=== PATIENT | male | born 1990 | race Caucasian/White ===

== ENCOUNTER 2018-02-23 08:50 | Emergency (ER) | payer OTHER ==
[2018-02-23 09:19] VITALS: BP 142/64
--- NOTE | 2018-02-23 10:12 | ED Physician Documentation ---
PD HPI SKIN - Stated complaint Stated Complaint: MALE - Chief complaint Chief Complaint: Wound - History obtained from History obtained from: Patient - History of Present Illness Timing - onset: How many days ago (3) Timing - duration: Days (3) Timing - details: Gradual onset, Still present Location: Genitals Quality / character: Itchy, Raised, Vesicular Associated symptoms: Other (recently shaved genitals) Similar symptoms before: Has not had sx before Recently seen: Not recently seen - Additional information Additional information: 27-year-old male has recently shaved his private areas and he has developed an area where the hair follicles appear infected and he has plucked some hair follicles out with drainage of pus. The area continues to have inflammation and he is here for evaluation. He states that he did have protected intercourse 1 month ago and he has not otherwise had exposure. He denies any urinary symptoms. Denies any generalized aches or pains does have pain directly to the area. Review of Systems Constitutional: denies: Fever, Chills, Myalgias, Fatigue, Sweats Respiratory: denies: Cough GI: denies: Nausea, Vomiting : denies: Dysuria, Frequency, Discharge Skin: reports: Lesions Musculoskeletal: denies: Neck pain, Back pain, Extremity pain PD PAST MEDICAL HISTORY - Present Medications Home Medications: Ambulatory Orders Medication Instructions Recorded Confirmed Sulfamethoxazole/Trimethoprim 1 each PO BID #14 tablet 02/23/18 [Sulfamethoxazole-Tmp Ds Tablet] - Allergies Allergies/Adverse Reactions: Allergies Allergy/AdvReac Type Severity Reaction Status Date / Time No Known Drug Allergies Allergy Verified 02/23/18 09:18 PD ED PE NORMAL - Vitals Vital signs reviewed: Yes (min;) - General General: Alert and oriented X 3, No acute distress, Well developed/nourished - HEENT HEENT: Atraumatic, PERRL, EOMI - Respiratory Respiratory: No respiratory distress - Derm Derm: Normal color, Warm and dry, Other (there is a circular area on the right groin lateral and superior to the penis with inflamation in each hair follicle and no fluctuance or mass. The area is consistent with vesicular formation of HSV except that the inflamation is only in the hair follicles. ) - Extremities Extremities: No deformity, No edema - Neuro Neuro: No motor deficit, No sensory deficit Eye Opening: Spontaneous Motor: Obeys Commands Verbal: Oriented GCS Score: 15 - Psych Psych: Normal mood, Normal affect Results - Vitals Vitals: Vital Signs - 24 hr 02/23/18 09:16 Temperature 36.8 C Heart Rate 79 Respiratory 18 Rate Blood Pressure 142/64 H O2 Saturation 99 Oxygen O2 Source Room air PD MEDICAL DECISION MAKING - ED course Complexity details: considered differential, d/w patient ED course: 27-year-old male with an area of vesiculation that appears consistent with HSV except that all the inflammation is only in the hair shafts. He gives a history of 1 month ago having intercourse and this could be a exceptionally long incubation period. A swab of a vesicle is obtained for HSV on a viral transport swab and the patient is treated for folliculitis. - Sepsis Event Vital Signs: Vital Signs - 24 hr 02/23/18 09:16 Temperature 36.8 C Heart Rate 79 Respiratory 18 Rate Blood Pressure 142/64 H O2 Saturation 99 Oxygen O2 Source Room air Departure - Departure Disposition: 01 Home, Self Care Clinical Impression: Folliculitis Condition: Stable Instructions: ED Stap Infec Abx Tx Only Follow-Up: [facility] [Provider Group] Prescriptions: Sulfamethoxazole/Trimethoprim [Sulfamethoxazole-Tmp Ds Tablet] 1 each PO BID # 14 tablet
[2018-02-25 18:47] LABS: HSV 2 DNA DETECTED; SOURCE GENITAL VESICLES
== END 2018-02-23 10:32 | disposition home or self-care (01) ==
LOC: ED 08:50
DX: L73.9 Follicular disorder, unspecified (principal)
CPT/HCPCS: 36415; 87529; 99283

== ENCOUNTER 2018-05-24 14:24 | Emergency (ER) | payer OTHER ==
[2018-05-24 14:52] VITALS: BP 107/49
--- NOTE | 2018-05-24 15:29 | ED Physician Documentation ---
PD HPI SKIN - Stated complaint Stated Complaint: MED REFILL - Chief complaint Chief Complaint: General - History obtained from History obtained from: Patient - History of Present Illness Timing - onset: Yesterday Timing - duration: Days (1) Timing - details: Abrupt onset Location: Genitals Quality / character: Painful, Discolored (red) Associated symptoms: Myalgias. No: Fever Similar symptoms before: Diagnosis (genital herpes, with first outbreak in February this year and a mild outbreak March and then April.) Recently seen: Not recently seen Review of Systems Constitutional: reports: Myalgias. denies: Fever, Chills Respiratory: denies: Dyspnea, Cough GI: denies: Nausea, Vomiting, Diarrhea PD PAST MEDICAL HISTORY - Past Medical History Cardiovascular: None Respiratory: None Neuro: None Endocrine/Autoimmune: None - Past Surgical History Past Surgical History: No - Present Medications Home Medications: Ambulatory Orders Medication Instructions Recorded Confirmed Sulfamethoxazole/Trimethoprim 1 each PO BID #14 tablet 02/23/18 [Sulfamethoxazole-Tmp Ds Tablet] Valacyclovir HCl [Valacyclovir] 1,000 mg PO DAILY #5 tablet 05/24/18 - Allergies Allergies/Adverse Reactions: Allergies Allergy/AdvReac Type Severity Reaction Status Date / Time No Known Drug Allergies Allergy Verified 05/24/18 14:51 - Social History Does the pt smoke?: No Smoking Status: Never smoker Does the pt drink ETOH?: No Does the pt have substance abuse?: No - Immunizations Immunizations are current?: Yes PD ED PE NORMAL - Vitals Vital signs reviewed: Yes - General General: Alert and oriented X 3, No acute distress, Well developed/nourished - Cardiac Cardiac: RRR, No murmur - Respiratory Respiratory: Clear bilaterally - Abdomen Abdomen: Soft, Non tender - Male Male : Deferred, Other - Back Back: No CVA TTP - Derm Derm: Normal color, Warm and dry Results - Vitals Vitals: Oxygen O2 Source Room air PD MEDICAL DECISION MAKING - Sepsis Event Vital Signs: Oxygen O2 Source Room air Departure - Departure Disposition: 01 Home, Self Care Clinical Impression: 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 Repeat regimen for recurrent episodes. If you have frequent recurrences, contact your primary care regarding daily suppressive therapy instead. Discharge Date/Time: 05/24/18 15:56
== END 2018-05-24 15:56 | disposition home or self-care (01) ==
LOC: ED 14:24
DX: A60.00 Herpesviral infection of urogenital system, unspecified (principal)
CPT/HCPCS: 99281; 99283

== ENCOUNTER 2019-06-19 09:14 | Emergency (ER) | payer OTHER ==
--- NOTE | 2019-06-19 11:38 | ED Physician Documentation ---
PD HPI URI - Stated complaint Stated Complaint: CEDEÑO/COUGHING UP BLOOD - Chief complaint Chief Complaint: Heent - History obtained from History obtained from: Patient - History of Present Illness Timing - onset: How many weeks ago (1-2) Timing duration: Weeks (1-2) Timing details: Gradual onset, Still present Associated symptoms: Sore throat, Productive cough, Hemoptysis (small wisps with productive cough the past few days). No: Fever, Chills, Dyspnea, NVD Contributing factors: No: Sick contact, Travel, COPD / asthma Improves by: No: Medication (OTC cough meds without improvement) Worsened by: Breathing, Other (coughing) Recently seen: Not recently seen Review of Systems Constitutional: reports: Chills, Myalgias. denies: Fever Nose: reports: Congestion. denies: Rhinorrhea / runny nose Throat: denies: Sore throat Cardiac: denies: Chest pain / pressure, Palpitations Respiratory: reports: Dyspnea, Cough, Hemoptysis (mild). denies: Wheezing GI: denies: Abdominal Pain, Nausea, Vomiting, Diarrhea Musculoskeletal: denies: Neck pain, Back pain PD PAST MEDICAL HISTORY - Past Medical History Cardiovascular: None Respiratory: None Neuro: None Endocrine/Autoimmune: None Derm: Herpes zoster - Past Surgical History Past Surgical History: No - Present Medications Home Medications: Ambulatory Orders Medication Instructions Recorded Confirmed Sulfamethoxazole/Trimethoprim 1 each PO BID #14 tablet 02/23/18 [Sulfamethoxazole-Tmp Ds Tablet] Valacyclovir HCl [Valacyclovir] 1,000 mg PO DAILY #5 tablet 05/24/18 Benzonatate [Tessalon Perle] 100 - 200 mg PO TID PRN #30 capsule 06/19/19 Doxycycline Hyclate 100 mg PO BID #14 capsule 06/19/19 dexAMETHasone [Decadron] 4 mg PO DAILY #5 tablet 06/19/19 - Allergies Allergies/Adverse Reactions: Allergies Allergy/AdvReac Type Severity Reaction Status Date / Time No Known Drug Allergies Allergy Verified 06/19/19 09:25 - Social History Does the pt smoke?: No Smoking Status: Never smoker Does the pt drink ETOH?: No Does the pt have substance abuse?: No - Immunizations Immunizations are current?: Yes PD ED PE NORMAL - Vitals Vital signs reviewed: Yes - General General: Alert and oriented X 3, No acute distress, Well developed/nourished - HEENT HEENT: Ears normal, Moist mucous membranes, Pharynx benign - Neck Neck: Supple, no meningeal sign, No adenopathy - Cardiac Cardiac: RRR, No murmur - Respiratory Respiratory: Clear bilaterally - Abdomen Abdomen: Soft, Non tender - Derm Derm: Normal color, Warm and dry - Extremities Extremities: No deformity, No tenderness to palpate, No edema, No calf tenderness / cord - Neuro Neuro: Alert and oriented X 3, No motor deficit Results - Vitals Vitals: Vital Signs - 24 hr 06/19/19 06/19/19 09:22 12:11 Temperature 36.5 C Heart Rate 57 L 62 Respiratory 16 16 Rate Blood Pressure 135/64 H 125/64 O2 Saturation 99 99 Oxygen O2 Source Room air PD MEDICAL DECISION MAKING - ED course Complexity details: considered differential (URI symptoms for a week, and now cough and hemoptysis. Presume viral illness and now seeming bacterial transformation. ), d/w patient Departure - Departure Disposition: 01 Home, Self Care Clinical Impression: Cough with hemoptysis Bronchitis, acute Qualifiers: Bronchitis organism: unspecified organism Qualified Code(s): J20.9 - Acute bronchitis, unspecified Condition: Stable Record reviewed to determine appropriate education?: Yes Instructions: ED Upper Resp Infec Abx Tx Follow-Up: [facility] [Provider Group] Prescriptions: Benzonatate [Tessalon Perle] 100 - 200 mg PO TID PRN #30 capsule PRN Reason: Cough dexAMETHasone [Decadron] 4 mg PO DAILY #5 tablet Doxycycline Hyclate 100 mg PO BID #14 capsule Comments: Stay well-hydrated. Tylenol or ibuprofen if needed for fevers and pains. Doxycycline antibiotic twice daily for a week for the bronchitis. Decadron steroid for inflammation of the airways. Tessalon if needed for cough suppression. Recheck if not improved well over the next several days. Discharge Date/Time: 06/19/19 12:11
[2019-06-19] MEDS ORDERED: DEXAMETHASONE 10 MG/ML VIAL PO STA (11:50)
[2019-06-19] MEDS ORDERED: BENZONATATE 100 MG CAPSULE PO STA (11:50)
[2019-06-19] MEDS ORDERED: DOXYCYCLINE 100 MG TABLET PO STA (11:50)
[2019-06-19] MEDS ORDERED: CHERRY SYRUP 10 ML UDC PO ONE (11:50)
[2019-06-19 12:11] VITALS: BP 125/64
== END 2019-06-19 12:11 | disposition home or self-care (01) ==
LOC: ED 09:14
DX: J20.9 Acute bronchitis, unspecified (principal); R04.2 Hemoptysis
CPT/HCPCS: 99283; A9270